=== PATIENT | male | born 2005 | race Hispanic/Latino ===

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

== ENCOUNTER 2024-07-04 20:32 | Emergency (ER) | payer BC, MEDICAID ==
[~2024-07-04] VITALS: Ht 170.2 cm; Wt 91.2 kg
[2024-07-04 20:57] VITALS: PULSE 101; RESP 20
[2024-07-04 20:57] LABS: SARS-CoV-2, RNA, NAAT NEGATIVE SARS CoV-2 (NEGATIVE)
[2024-07-04] MEDS: IpraTROPium/alBUTERol SULFATE 3 ML SOLUTION IH ONE ×2 (20:57→21:59)
[2024-07-04 21:01] LABS: INFLUENZA TYPE A Negative For Type A (NEGATIVE); INFLUENZA TYPE B Negative For Type B (NEGATIVE)
[2024-07-04 21:05] VITALS: PULSE 100; RESP 18
[2024-07-04] MEDS: BUDESONIDE 0.5 MG/2 ML INH IH SCH (21:05)
[2024-07-04] MEDS: monteLUKAST sodIUM 10 MG TAB PO SCH (21:13)
[2024-07-04] MEDS: PREDNISONE 20 MG TABLET PO ONE (21:18)
[2024-07-04] MEDS ORDERED: FLUT12AE21 IH (21:55)
[2024-07-04] MEDS ORDERED: MONT-47 PO (21:55)
[2024-07-04] MEDS ORDERED: ALBU18HF7 IH (21:55)
[2024-07-04 22:03] VITALS: BP 142/75; PULSE 98; RESP 19; O2SAT 98
[2024-07-05] MEDS ORDERED: BUDESONIDE 0.5 MG/2 ML INH IH SCH (06:00)
== END 2024-07-04 22:09 | disposition home or self-care (01) ==
LOC: EDH 20:32
DX: J45.909 Unspecified asthma, uncomplicated (principal); Z20.822 Contact with and (suspected) exposure to COVID-19; F41.9 Anxiety disorder, unspecified; F32.A Depression, unspecified; F20.9 Schizophrenia, unspecified; Z90.49 Acquired absence of other specified parts of digestive tract; Z88.0 Allergy status to penicillin; Z88.8 Allergy status to other drugs, medicaments and biological substances
CPT/HCPCS: 87635; 87804; 94640